=== PATIENT | male | born 1955 | race Caucasian/White ===

== ENCOUNTER 2017-08-02 15:11 | Inpatient (IN) ==
--- NOTE | 2017-08-02 15:58 | Emergency Department Note ---
Disposition Clinical Impression: Deep vein thrombosis of lower extremity, PAD (peripheral artery disease) Disposition: Admitted As Inpatient Condition: Fair Time of Disposition: 17:29 Extremity Problem HPI - General Chief complaint: ED Extremity Problem,Nontraumatic Stated complaint: DVT L leg Time Seen by Provider: 08/02/17 15:14 Source: patient, EMS Limitations: no limitations Nursing Notes Reviewed: Yes Vital Signs Reviewed: Yes - History of Present Illness HPI Narrative: 62-year-old male, transfer from [place], with a past medical history of DM (July 2017 Hgb A1c 9.9), hypertension, hypercholesterolemia, and 40 year smoking history, presenting with bilateral posterior calf tenderness on exertion x 6 months. 4 days ago progressed R LEG to leg pain on rest. Endorses associated symptoms of mild coolness to touch. Per OSH report, MELANIE was done on 07/30/17 with MELANIE of right side of 0.21 and MELANIE on left side 0.82. Per verbal report to ED, [facility] studies finding concerning for occlusion to flow in R popliteral artery and DVT in L popliteal vein. Pt Subjective Complaint: extremity pain Onset (ago): day(s) Consistency: constant Injury Location: right, lower extremity, other (Evidence) Pain Scale: 8 Quality: burning Radiation: distal Improves with: nothing Worsens with: walking Associated symptoms: Reports: abdominal pain, back pain, other (erectile dysfunction, R LE appears cold to touch. Denies buttock claudication. ). 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 No recent surgery. No active malignancy. Patient's last meal: Coffee in AM. ) - Related Data Home Medications Medication Instructions Recorded Confirmed Atorvastatin [Lipitor] 40 mg PO HS 08/02/17 08/02/17 Cilostazol [Pletal] 100 mg PO BID 08/02/17 08/02/17 Gabapentin [Neurontin] 300 mg PO BID 08/02/17 08/02/17 Glimepiride [Amaryl] 4 mg PO DAILY 08/02/17 08/02/17 Lisinopril-HCTZ 20-12.5 [Prinzide 1 tab PO DAILY 08/02/17 08/02/17 20-12.5] Metformin HCl [Metformin HCl ER] 2,000 mg PO DAILY 08/02/17 08/02/17 Metoprolol Tartrate [Metoprolol 50 mg PO BID 08/02/17 08/02/17 Tartrate] SitaGLIPtin [Januvia] 200 mg PO DAILY 08/02/17 08/02/17 Triamterene/HCTZ 37.5/25mg 1 tab PO DAILY 08/02/17 08/02/17 [Dyazide] Allergies Allergy/AdvReac Type Severity Reaction Status Date / Time Oxycodone [From Percocet] AdvReac Itching Verified 08/02/17 18:39 Constitutional: Denies: fever, chills Cardiovascular: Denies: chest pain, dyspnea on exertion Respiratory: Denies: cough, dyspnea, wheezes Neurological: Reports: numbness, paresthesias Past Medical History - Past Medical History Medical history: Reports: DVT, diabetes, hyperlipidemia, hypertension, peripheral artery disease Psychiatric history: Reports: no psych history - Social History Smoking Status: Current every day smoker Smokeless Tobacco Status: No Alcohol use: Reports: none Drug use: Reports: none Physical Exam - General Limitations: no limitations General appearance: alert - Head Head exam: atraumatic, normocephalic - Eye Eye exam: Present: normal appearance, EOMI. Absent: conjunctival injection - Chest Chest inspection: Present: symmetric chest wall rise. Absent: tenderness - Respiratory Respiratory exam: Present: normal lung sounds bilaterally. Absent: respiratory distress, accessory muscle use - Cardiovascular Cardiovascular exam: Present: regular rate, normal rhythm, +S1, +S2 - Abdominal Exam Abdominal exam: Present: soft. Absent: tenderness, distention, guarding, rebound - Extremities Exam Extremities exam: Present: other (Right pedal pulses absent. Bedside U/S visualized color flow of the R dorsalis pedis. L: Pedal pulse via Doppler. Doppler: Femoral pulses present b/l. Popliteal pulses b/l. Mild discoloration to base of R foot. No gangrene. No ulcer seen b/l. Tenderness to touch on R toe. ) - Neurological Exam Neurological exam: Present: oriented X3 - Psychiatric Psychiatric exam: Present: normal affect Course - Consultations Consultation #1: 16:30 - Consultation with Vascular Surgeon. Dr. Tobin to evaluate pt in ED. Consultation #2: Dr. Tobin at Bedside 16:45 - Had an extensive discussion with family. Accepts consultation. Pt and family thanked surgeon, all questions answered. Consultation #3: 17:25- Discussed case with Dr. Baez. Accepts admission. Vital Signs Temperature 97.9 F 08/02/17 15:16 Pulse Rate 61 08/02/17 15:16 Respiratory Rate 18 08/02/17 15:16 Blood Pressure 162/84 08/02/17 15:16 O2 Sat by Pulse Oximetry 97 08/02/17 15:16 Temperature 97.9 F 08/02/17 15:16 Pulse Rate 61 08/02/17 15:16 Respiratory Rate 18 08/02/17 15:16 Blood Pressure 162/84 08/02/17 15:16 O2 Sat by Pulse Oximetry 97 08/02/17 15:16 Oxygen Delivery Oxygen Delivery Room Air Extremity Problem, Nontraumati - MDM Narrative Medical decision making narrative: 62-year-old male with a past medical history of DM, hypertension, and 40-year old smoking history presenting with gradual worsening of lower extremity claudication on exertion, erectile dysfunction x months. No buttock claudication. Findings suggestive of severe arterial insufficiency on the right , and with mild arterial insufficiency on the left. DVT in LE. Femoral pulses and popliteal pulses present via Doppler. No gangrene. No ulcers. Vascular surgery consultation made. Dr. Tobin accepts patient, recommends admission. Treatment of DVT initiated in ED. Hospitalist accepts admission. - Differential Diagnosis Likely: deep venous thrombosis, arterial vascular disorder - Medical Records Medical records reviewed: Yes I reviewed the patient's medical records. Formal Report of [facility] studies not in transfer file. We have requested files from [place]. - Lab Data Lab results reviewed: Yes I reviewed the patient's lab results. Result diagrams: 08/02/17 15:40 08/02/17 15:40 Lab Results 08/02/17 08/02/17 08/02/17 Range/Units 15:40 15:40 15:40 WBC 7.4 (4.3-11.1) K/mcL RBC 4.79 (4.19-5.50) M/mcL Hgb 14.7 (12.9-16.9) g/dL Hct 43.1 (37.5-50.1) % MCV 90.0 (83.0-100.0) fL MCH 30.7 (28.0-33.3) pg MCHC 34.1 (31.6-35.5) g/dL RDW 12.8 (11.5-14.5) % Plt Count 161 (140-400) K/mcL MPV 11.0 (9.4-12.4) fL Immature Gran % 0.4 (0-4) % Seg Neutrophils % 54.0 % Lymphocytes % 32.4 % Monocytes % 8.9 % Eosinophils % 3.8 % Basophils % 0.5 % Neutrophils # 4.0 (1.6-8.9) K/mcL Lymphocytes # 2.4 (0.6-4.6) K/mcL Monocytes # 0.7 (0.0-1.3) K/mcL Eosinophils # 0.3 (0.0-0.6) K/mcL Basophils # 0.0 (0.0-0.2) K/mcL PT (9.4-12.1) Seconds INR APTT (26.0-36.0) Seconds Sodium 137 (136-145) mEq/L Potassium 3.7 (3.5-5.1) mEq/L Chloride 105 (98-107) mEq/L Carbon Dioxide 26 (23-29) mEq/L BUN 18 (8-23) mg/dL Creatinine 1.09 (0.70-1.30) mg/dL Est GFR ( Amer) > 60 (> 60) Est GFR (Non-Af Amer) > 60 (> 60) BUN/Creatinine Ratio 17 (6-26) Glucose 132 H (70-105) mg/dL Calculated Osmolality 288 (280-300) Calcium 9.6 (8.6-10.3) mg/dL Blood Type A POSITIVE Antibody Screen NEGATIVE 08/02/17 Range/Units 15:40 WBC (4.3-11.1) K/mcL RBC (4.19-5.50) M/mcL Hgb (12.9-16.9) g/dL Hct (37.5-50.1) % MCV (83.0-100.0) fL MCH (28.0-33.3) pg MCHC (31.6-35.5) g/dL RDW (11.5-14.5) % Plt Count (140-400) K/mcL MPV (9.4-12.4) fL Immature Gran % (0-4) % Seg Neutrophils % % Lymphocytes % % Monocytes % % Eosinophils % % Basophils % % Neutrophils # (1.6-8.9) K/mcL Lymphocytes # (0.6-4.6) K/mcL Monocytes # (0.0-1.3) K/mcL Eosinophils # (0.0-0.6) K/mcL Basophils # (0.0-0.2) K/mcL PT 10.5 (9.4-12.1) Seconds INR 1.0 APTT 28.6 (26.0-36.0) Seconds Sodium (136-145) mEq/L Potassium (3.5-5.1) mEq/L Chloride (98-107) mEq/L Carbon Dioxide (23-29) mEq/L BUN (8-23) mg/dL Creatinine (0.70-1.30) mg/dL Est GFR ( Amer) (> 60) Est GFR (Non-Af Amer) (> 60) BUN/Creatinine Ratio (6-26) Glucose (70-105) mg/dL Calculated Osmolality (280-300) Calcium (8.6-10.3) mg/dL Blood Type Antibody Screen - Radiology Data Radiology results reviewed: Yes I reviewed the patient's radiology results. - EKG Data EKG attestation: Yes I reviewed and interpreted this EKG. EKG results narrative: 16:59:29 - Sinus bradycardia. Ventricular rate 56. [place] interval 139. QRS duration 89. QT/Qtc 439/430 ms.
[2017-08-02 16:21] LABS: Basophils % 0.5 %; Eosinophils # 0.3 K/mcL (0.0-0.6); Eosinophils % 3.8 %; Hematocrit 43.1 % (37.5-50.1); Hemoglobin 14.7 g/dL (12.9-16.9); Immature Granulocytes % 0.4 % (0-4); Lymphocytes # 2.4 K/mcL (0.6-4.6); Lymphocytes % 32.4 %; Mean Corpuscular HGB Conc 34.1 g/dL (31.6-35.5); Mean Corpuscular Hemoglobin 30.7 pg (28.0-33.3); Monocytes # 0.7 K/mcL (0.0-1.3); Monocytes % 8.9 %; Platelet Count 161 K/mcL (140-400); Red Blood Count 4.79 M/mcL (4.19-5.50); Red Cell Distribution Width 12.8 % (11.5-14.5)
[2017-08-02 16:29] LABS: Prothrombin Time 10.5 Seconds (9.4-12.1)
[2017-08-02] MEDS ORDERED: *HR* Heparin 5,000 UNIT/ML VIAL IVP ONE (16:39)
[2017-08-02] MEDS ORDERED: *HR* Heparin 5,000 UNIT/ML VIAL IVP PRN ×2 (16:39)
[2017-08-02 16:43] LABS: BUN/Creatinine Ratio 17 (6-26); Blood Urea Nitrogen 18 mg/dL (8-23); Calcium 9.6 mg/dL (8.6-10.3); Carbon Dioxide 26 mEq/L (23-29); Chloride 105 mEq/L (98-107); Glucose 132 mg/dL (70-105); Osmolality,Calculated 288 (280-300); Potassium 3.7 mEq/L (3.5-5.1); Sodium 137 mEq/L (136-145); eGFR For African Americans > 60 (> 60); eGFR For Non-African Americans > 60 (> 60)
--- NOTE | 2017-08-02 16:49 | Emergency Department Note ---
START Narrative - START START: I examined this patient and my medical decision-making was reviewed with the Resident Physician. I agree with the documented findings, disposition and treatment plan as described except to the extent set forth below. 62 yo M sent from [place] for concerns for right popliteal Aa. occlusion. pt also found out to have a left DVT. this is all new for him. sx with pain started on and now has noted some color changes in right great toe. increasing pain in this area as well. [facility] and MELANIE spoke with Dr Tobin who came to ER right away to see pt. i have ordered heparin gtt in consult with pharmacy as well critical care time of 35 min spent in medical management of vascular occlusion.
[2017-08-02 16:50] LABS: Activated Partial Thrombo Time 28.6 Seconds (26.0-36.0)
[2017-08-02] MEDS: Heparin 25,000 UNIT/500 ML D5W 25,000 UNIT/500 ML BAG IVC SCH (17:26)
--- NOTE | 2017-08-02 17:30 | Vascular/Endovasc Consult Note ---
Date of Encounter: 08/02/17 Time of Encounter: 17:00 Assessment and Plan (1) Atherosclerosis of [place] arteries of extremities with rest pain, right leg Status: Chronic The pathophysiology and natural history of peripheral vascular disease was discussed with the patient and all questions were answered. He has a diminished pulse exam. His RABI is consistent with severe disease. His LABI is consistent with mild disease. He will be admitted and started on a heparin drip. He will be scheduled for an angiogram tomorrow. The risks, benefits and alternatives were discussed and all questions were answered. (2) Essential hypertension Status: Chronic He was counseled regarding atherosclerotic risk factor reduction. (3) Mixed hyperlipidemia Status: Chronic (4) Diabetes mellitus with peripheral angiopathy without gangrene Status: Chronic Qualifiers: Diabetes mellitus type: type 2 Diabetes mellitus care home insulin use: unspecified care home insulin use status Qualified Code(s): E11.51 - Type 2 diabetes mellitus with diabetic peripheral angiopathy without gangrene (5) Tobacco abuse Status: Chronic He was counseled regarding smoking cessation. Will order nicotine patch. (6) Deep vein thrombosis of lower extremity Status: Acute The patient has a left lower extremity DVT. He will be started on a heparid drip. Qualifiers: Affected thrombotic vein of extremity: popliteal Chronicity: acute Laterality: left Qualified Code(s): I82.432 - Acute embolism and thrombosis of left popliteal vein - History of Present Illness Consult date: 08/02/17 Requesting physician: Fredis Baldwin Consult reason: Peripheral vascular disease with rest pain Chief complaint: Right foot pain History of present illness: Mr. Cheung is a 62 year old male with a history of hypertension, hyperlipidemia, diabetes and tobacco abuse. The patient reports that he began to develop disabling right lower extremity claudication in December 2016. The patient reports that his symptoms progressed over the next several months. He was seen at the [facility], but intially was thought to have a nonvascular issue. He underwent vascular labs recently and was found to have evidence of significant peripheral vascular disease. The patient was transferred from the [facility] to [facility] ED for further evaluation. He denies rest pain, ulceration or gangrene. He denies chest pain or shortness of breath. He denies hear palpitations. Past Med Surg Social Fam HX - Past Medical History Medical history: DVT, diabetes, hyperlipidemia, hypertension, peripheral artery disease Psychiatric history: no psych history - Social History Smoking Status: Current every day smoker Smokeless Tobacco Status: No Alcohol use: none Drug use: none - Family History Mother Hx Family Endocrine Disorder: Yes Father Hx Family Endocrine Disorder: Yes Medications and Allergies Atorvastatin [Lipitor] 40 mg PO HS 08/02/17 [History] Cilostazol [Pletal] 100 mg PO BID 08/02/17 [History] Gabapentin [Neurontin] 300 mg PO BID 08/02/17 [History] Glimepiride [Amaryl] 4 mg PO DAILY 08/02/17 [History] Lisinopril-HCTZ 20-12.5 [Prinzide 20-12.5] 1 tab PO DAILY 08/02/17 [History] Metformin HCl [Metformin HCl ER] 2,000 mg PO DAILY 08/02/17 [History] Metoprolol Tartrate 50 mg PO BID 08/02/17 [History] SitaGLIPtin [Januvia] 200 mg PO DAILY 08/02/17 [History] Triamterene/HCTZ 37.5/25mg [Dyazide] 1 tab PO DAILY 08/02/17 [History] HYDROcodone/Acet 5/325 mg [[place] 5-325 mg] 2 tab PO Q6HR PRN 10 Days #30 tablet 08/05/17 [Rx] Rivaroxaban [Xarelto] 15 mg PO BID #41 tablet 08/05/17 [Rx] Rivaroxaban [Xarelto] 20 mg PO 1700 #30 tablet 08/05/17 [Rx] 3 Allergy/AdvReac Type Severity Reaction Status Date / Time Oxycodone [From Percocet] AdvReac Itching Verified 08/02/17 18:39 All Systems Review: The remainder of the systems were reviewed and are negative Exam Vital Signs, Last 4 Hours Temp Pulse Resp BP Pulse Ox 08/02/17 15:16 97.9 F 61 18 162/84 97 General: Present: Conversant, No Apparent Distress HEENT: Present: Trachea midline, Pupils equal Neck: Absent: JVD, Left Carotid bruit, Right Carotid bruit Cardiac: Present: Reg Rate and Rhythm, Normal S1 and S2 Lungs: Present: Normal Breath Sounds Neuro: Present: Alert and responsive, Motor nerves grossly intact, Sensory nerves grossly intact Abdomen: Present: Soft, Non-tender. Absent: Masses Vascular: Present: Normal capillary refill (except sluggish at right great toe) , Pulse, absent (right pedal pulses absent, right popliteal pulse absent), Pulse , diminished (Left lower extremity). Absent: Edema Skin: Present: No rashes noted on visualized skin. Absent: Wound/ulcer(s) Musculoskeletal: Present: No Chest Wall Tenderness Consult Discharge Plan - Plan Instructions: Deep Venous Thrombosis (DC), Peripheral Vascular Disorders (DC), Angiography (DC) Additional Instructions: May remove bandages and shower on 08/06/17. Wash wounds gently and pat to dry. Apply dry gauze to wounds daily for 7 days. No tub baths or swimming until 08/23/17. Call Dr. Tobin at [phone] with questions or concerns. Referrals: Gus Tobin MD [Partnered Physician] - 08/10/17 2:10 pm [place],PCP [Primary Care Provider] - 08/13/17 9:30 am Prescriptions: HYDROcodone/Acet 5/325 mg [[place] 5-325 mg] 2 tab PO Q6HR PRN 10 Days #30 tablet PRN Reason: Severe Pain Rivaroxaban [Xarelto] 15 mg PO BID #41 tablet Rivaroxaban [Xarelto] 20 mg PO 1700 #30 tablet
[2017-08-02] MEDS ORDERED: *HR* Nalbuphine 10 MG/ML AMPUL IVP ONE (17:44)
--- NOTE | 2017-08-02 19:53 | Internal Med History&Physical ---
<Hero Hope - Last Filed: 08/02/17 20:26> Date of Encounter: 08/02/17 Time of Encounter: 19:53 Assessment and Plan (1) Severe peripheral arterial disease Current visit: Yes Status: Acute Patient with history of progressive claudication over several months. Studies obtained at the [facility] today with reports of popliteal artery occlusion in the right leg and DVT in the left popliteal vein. Vascular surgery consulted by emergency department, evaluated in the emergency department. Continue heparin gtt. NPO at midnight. Plan for angiogram tomorrow as per vascular surgery note. (2) Deep vein thrombosis of lower extremity Current visit: Yes Status: Acute Reported DVT in left popliteal vein. History of severe peripheral vascular disease. Vascular surgery consulted. Continue heparin gtt Qualifiers: Affected thrombotic vein of extremity: popliteal Chronicity: acute Laterality: left Qualified Code(s): I82.432 - Acute embolism and thrombosis of left popliteal vein (3) Hyperlipidemia Current visit: Yes Status: Chronic Patient is NPO Resume statin after vascular intervention. Qualifiers: Hyperlipidemia type: unspecified Qualified Code(s): E78.5 - Hyperlipidemia , unspecified (4) Essential hypertension Current visit: Yes Status: Chronic NPO Hold antihypertensives medications. Lopressor 5 mg every 6 hours as needed. (5) Diabetes mellitus with peripheral angiopathy without gangrene Current visit: Yes Status: Chronic NPO at midnight. Hold metformin. Sliding-scale insulin coverage. Qualifiers: Diabetes mellitus type: type 2 Diabetes mellitus [facility] insulin use: unspecified terminal gauger insulin use status Qualified Code(s): E11.51 - Type 2 diabetes mellitus with diabetic peripheral angiopathy without gangrene Internal Medicine - H&P: HPI Chief complaint: dvt, pvd Admitted From: Emergency Dept Plans for Post Hospital Care: Home History of present illness: Mr. Cheung is a 62 year old male with a past medical history of type 2 diabetes, hypertension, peripheral vascular disease, hyperlipidemia who presented to the emergency department on 08/02/17 from the [facility] urgent care due to concern for lower extremity peripheral vascular disease. The patient reports that he has had issues with claudication since 2017. It seems to been progressing over time. Reports pain in his lower extremities worse with ambulation. He reports for the last several days he has had pain in his right calf. States it is also having some numbness in his feet. He went to the [facility] urgent care with her was concerned that he had a DVT as well as absent pulses in his right lower extremity. Patient sent here for evaluation. Upon arrival the patient was evaluated in the emergency department and vascular surgery consultation was obtained. Past surgery evaluated the patient in the emergency department making recommendations for heparin drip as well as angiogram in the morning. Patient seen and evaluated at bedside in the emergency department. He voices no complaints. States that he has been having pain in his Right calf for several days. Denies any difference in discoloration than usual. He denies any chest pain, shortness of breath, nausea, vomiting, abdominal pain. He denies any prior history of DVT or pulmonary embolism. No known history of coagulopathy as he is aware. No other complaints. Past Med Surg Social Fam HX - Past Medical History Attestation: Yes The following information was validated with the patient. Source: patient Medical history: DVT, diabetes, hyperlipidemia, hypertension, peripheral artery disease Psychiatric history: no psych history - Past Surgical History Surgical History: non-contributory - Social History Smoking Status: Current every day smoker Smokeless Tobacco Status: No Alcohol use: none Drug use: none - Family History Mother Hx Family Endocrine Disorder: Yes Father Hx Family Endocrine Disorder: Yes Internal Medicine - H&P: Meds Atorvastatin [Lipitor] 40 mg PO HS 08/02/17 [History] Cilostazol [Pletal] 100 mg PO BID 08/02/17 [History] Gabapentin [Neurontin] 300 mg PO BID 08/02/17 [History] Glimepiride [Amaryl] 4 mg PO DAILY 08/02/17 [History] Lisinopril-HCTZ 20-12.5 [Prinzide 20-12.5] 1 tab PO DAILY 08/02/17 [History] Metformin HCl [Metformin HCl ER] 2,000 mg PO DAILY 08/02/17 [History] Metoprolol Tartrate [Metoprolol Tartrate] 50 mg PO BID 08/02/17 [History] SitaGLIPtin [Januvia] 200 mg PO DAILY 08/02/17 [History] Triamterene/HCTZ 37.5/25mg [Dyazide] 1 tab PO DAILY 08/02/17 [History] 3 Allergy/AdvReac Type Severity Reaction Status Date / Time Oxycodone [From Percocet] AdvReac Itching Verified 08/02/17 18:39 All Systems PM: A 10-system review of systems was performed and is negative for pertinent findings except as documented above in the HPI. - Constitutional Constitutional: as per HPI - EENT Eyes: as per HPI Ears: as per HPI Nose, mouth and throat: as per HPI - Breasts Breasts: as per HPI - Cardiovascular Cardiovascular ROS IM: as per HPI - Respiratory Respiratory: as per HPI - Gastrointestinal Gastrointestinal: as per HPI - Genitourinary Genitourinary ROS male: as per HPI - Musculoskeletal Musculoskeletal ROS IM: as per HPI - Integumentary Integumentary IM: as per HPI - Neurological Neurological ROS: as per HPI - Psychiatric Psychiatric: as per HPI - Endocrine Endocrine IM: as per HPI - Hematologic/Lymphatic Hematologic/Lymphatic: as per HPI - Allergic/Immunologic Allergic/Immunologic: as per HPI - Constitutional Vitals: Temp Pulse Resp BP Pulse Ox 98 F 61 18 121/76 97 08/02/17 19:38 08/02/17 15:16 08/02/17 19:38 08/02/17 19:38 08/02/17 15:16 General appearance: Present: pleasant, no acute distress, answers questions appropriately - Head Head exam: Present: atraumatic, normal inspection, normocephalic - Eye Eye exam: Present: normal appearance - Neck Neck exam general surgery: Present: normal inspection - Respiratory Respiratory exam: Present: CTAB - Cardiovascular Cardiovascular exam: Present: RRR, +S1, +S2 - GI/Abdominal GI/Abdominal exam: Present: soft. Absent: distended, guarding, tenderness - Extremities Exam Additional comments: The patient has tenderness to palpation to the right calf. The patient also exhibits discoloration of the right great toe. Palpable pulses unobtainable in the dorsalis pedis and posterior tibial on the right. Capillary refill is preserved with the exception of the right great toe with response of roughly 4 seconds. One plus dorsalis pedis and posterior tibial pulses in the left lower extremity. No overlying skin changes or ulcerations. - Neurological Exam Neurological exam: Present: alert, no focal deficits - Skin Skin exam: Present: dry, intact Internal Med - H&P Results - Labs CBC & Chem 7: 08/02/17 15:40 08/02/17 15:40 <Marissa Mcclain - Last Filed: 08/02/17 22:17> Date of Encounter: 08/02/17 Internal Medicine - H&P: HPI History of present illness: Mr. Cheung is a 62 year old male All Systems PM: A 10-system review of systems was performed and is negative for pertinent findings except as documented above in the HPI. - Constitutional Vitals: Temp Pulse Resp BP Pulse Ox 98.0 F 69 18 141/83 97 08/02/17 19:53 08/02/17 20:15 08/02/17 19:53 08/02/17 19:53 08/02/17 19:53 Internal Med - H&P Results - Labs CBC & Chem 7: 08/02/17 15:40 08/02/17 15:40 - Attending Attestation I have seen and examined this patient independently. I have discussed with resident physician Dr Hope regarding the management plan. Agree with the documentation.
[2017-08-02] MEDS ORDERED: Naloxone 0.4 MG/ML INJ IVP PRN (19:57)
[2017-08-02] MEDS ORDERED: Ondansetron 4 MG/2 ML VIAL IVP PRN (19:57)
[2017-08-02] MEDS ORDERED: *HR* HYDROcodone/Acet 5/325 mg TABLET PO PRN (19:57)
[2017-08-02] MEDS ORDERED: Dextrose Gel 15 GM/37.5 ML TUBE PO PRN ×2 (20:01)
[2017-08-02] MEDS ORDERED: *HR* Dextrose 50 % in Water (Syg) 50 ML SYRINGE IVP PRN (20:01)
[2017-08-02] MEDS ORDERED: D5% in Water 1,000 ML IVC PRN (20:01)
[2017-08-02] MEDS ORDERED: *HR* Metoprolol 5 MG/5 ML VIAL IVP PRN (20:14)
[2017-08-03] MEDS ORDERED: 0.9 % Sodium Chloride 1,000 ML IVC SCH (00:01)
[2017-08-03] MEDS: Insulin LISPRO 300 UNITS/3 ML VIAL SQ SCH ×4 (00:39→17:54)
[2017-08-03 00:46] LABS: Activated Partial Thrombo Time 153.5 Seconds (26.0-36.0)
[2017-08-03 00:58] LABS: Heparin anti-factor XA UFH 0.79 IU/mL (0.30-0.70)
[2017-08-03 04:13] LABS: Basophils % 0.5 %; Eosinophils # 0.2 K/mcL (0.0-0.6); Hematocrit 37.1 % (37.5-50.1); Immature Granulocytes % 0.2 % (0-4); Lymphocytes # 2.3 K/mcL (0.6-4.6); Mean Corpuscular HGB Conc 33.7 g/dL (31.6-35.5); Mean Corpuscular Hemoglobin 29.9 pg (28.0-33.3); Mean Corpuscular Volume 88.8 fL (83.0-100.0); Monocytes # 0.5 K/mcL (0.0-1.3); Monocytes % 8.3 %; Neutrophils # 3.3 K/mcL (1.6-8.9); Platelet Count 147 K/mcL (140-400); Red Blood Count 4.18 M/mcL (4.19-5.50); Red Cell Distribution Width 12.6 % (11.5-14.5)
[2017-08-03 04:16] LABS: Hemoglobin 12.5 g/dL (12.9-16.9)
[2017-08-03 04:22] LABS: INR 1.1; Prothrombin Time 11.5 Seconds (9.4-12.1)
[2017-08-03 04:38] LABS: BUN/Creatinine Ratio 20 (6-26); Blood Urea Nitrogen 22 mg/dL (8-23); Calcium 9.1 mg/dL (8.6-10.3); Carbon Dioxide 28 mEq/L (23-29); Chloride 104 mEq/L (98-107); Glucose 198 mg/dL (70-105); Osmolality,Calculated 295 (280-300); Potassium 3.6 mEq/L (3.5-5.1); Sodium 138 mEq/L (136-145); eGFR For African Americans > 60 (> 60); eGFR For Non-African Americans > 60 (> 60)
[2017-08-03] MEDS ORDERED: Heparin 1,000 UNITS/500 mL 500 ML ONE (07:12)
[2017-08-03] MEDS ORDERED: *HR* Heparin 10,000 UNIT/10 ML VIAL ONE (07:12)
[2017-08-03] MEDS ORDERED: 0.9 % Sodium Chloride 1,000 ML ONE (07:12)
[2017-08-03] MEDS ORDERED: ISOVUE-250 150 ML INFUS..BTL IV ONE (07:12)
--- NOTE | 2017-08-03 08:17 | Pre-Sedation Evaluation ---
Pre-sedation evaluation - Pre-sedation checklist Date of procedure: 08/03/17 Procedure: angiogram Recent Vitals: Last Vital Signs Temp 98.4 F 08/03/17 06:42 Pulse 89 08/03/17 07:39 Resp 18 08/03/17 07:37 BP 140/87 08/03/17 06:42 Pulse Ox 99 08/03/17 07:37 H&P (including ROS) documented in medical record: Yes Dietary Status: NPO after Midnight ASA Classification *see protocol: CLASS II-Mild systemic disease Plan of Care: Pt appropriate candidate for procedure/moderate/conscious sedation , Risks/benefits of procedure/sedation discussed w/ patient/family
[2017-08-03] MEDS ORDERED: *HR* Midazolam HCl 2 MG/2 ML VIAL ONE (08:18)
[2017-08-03] MEDS ORDERED: *HR* FentaNYL (PF) 100 MCG/2 ML VIAL ONE (08:37)
--- NOTE | 2017-08-03 09:33 | Invasive Diagnostic Lab Proc ---
Name: Ramirez Cheung Date of Study: 08/03/2017 Date: 1955 Ht: 168.0 in Medical Record#: [id number] Age: 62 Wt: 79 lb Gender: Male BSA: 1.89 Order #: [id number] BMI: 27.99 Physicians Performing MD: Gus Tobin MD Referring MD: Referring MD: Staff Name Position Time In Ada Andrea RN Monitor Ada Andrea RN Senior Talent Management Consultant Sites, Agata RT (R) Scrub Indications Claudication Procedures Performed AORTOGRAPHY, ABDOMINAL S&I AORTOGRAPHY EXT Bilat S&I Pre-Procedure Checklist Informed consent is complete signed and on chart. H&P is on chart. ID band is on and ID verified with patient. Patient NPO for procedure The procedure was described for the patient and questions were answered. Blood Pressure: 181/109 ECG is on chart. Rhythm: NSR Plan of Care Patient will tolerate the procedure without complications. Adequate level of comfort will be maintained. Hemodynamics will remain stable Patient will recover from procedure without complications. Respiratory function will be maintained. Cardiac rhythm will remain stable. Patient temperature will be maintained. Patient and/or family have verbalized understanding of the procedure. Patient Education Chief Complaint/Reason for Test: Peripheral angiogram Developmental Category: Adult (18-64 years) Learning Barriers: None Education Needs: Procedure Education Method: Verbal Information Taught: Peripheral angiogram Educational Evaluation: Able to repeat information Intravenous Access Time IV Size Location DC'd Fluid/Drip Rate Units RN 20g 1 1/4" Patent On Arrival 0.9NaCl Allergies acetaminophen PERCOCET Acetaminophen/Oxycodone Hydr Oxycodone Vital Signs Time BP Systolic BP Diastolic HR O2 Sats ASA 181 109 90 100 Procedure Medications Time Medication Dose Units Method Route 08:26 AM Oxygen 2 L/min nasal cannula 08:27 AM Versed 1 mg Intravenous 08:34 AM Versed 1 mg Intravenous 08:38 AM Fentanyl 50 mcg Intravenous 08:39 AM Lidocaine 2% 8 ml Subcutaneous 08:40 AM Lidocaine 2% 10 ml Subcutaneous ASA Classification: CLASS II- Mild systemic disease (i.e. well-controlled diabetes, hypertension, asthma, cigarette smoking) Nimo Score Preprocedure Postprocedure Activity 2- Moves 4 extremities sustained head lift Activity 2- Moves 4 extremities sustained head lift Circulation 2- SBP +/= 20 points of pre-anesthetic level Circulation 2- SBP +/= 20 points of pre-anesthetic level Consciousness 2- Awake and alert oriented x 3 Consciousness 2- Awake and alert oriented x 3 O2 Saturation 2- Able to maintain O2 satruation of 92% on room air O2 Saturation 2- Able to maintain O2 satruation of 92% on room air Respiratory 2- Able to deep breathe and cough well Respiratory 2- Able to deep breathe and cough well Total Score 10 Total Score 10 Contrast: Isovue 250- 150ml Contrast Amount: 87 ml Fluoro Dose: 209 mGy Activated Clotting Time Time Drawn ACT (sec) 09:03 AM 150 Procedure Log Time Note Entered By 08:24 AM Pt arrived to lab analyst 1 at 08:24 [email or web address] 08:25 AM Julia Hirsch RT (R) Position: Monitor Time in: 08:24 [email or web address] 08:25 AM Ada Andrea RN Position: Senior Talent Management Consultant Time in: 08:25 [email or web address] 08:25 AM Agata Mckinley RT (R) Position: Scrub Time in: 08:25 [email or web address] 08:25 AM Case delayed: No [email or web address] 08:25 AM Hair removed from procedure site in holding area using clippers. Bilateral groin prepped with Chloraprep by Julia Hirsch RT (R), then patient was draped. Skin intact. [email or web address] 08:26 AM Physician arrived 08:26 [email or web address] 08:26 AM ASA Class CLASS II- Mild systemic disease (i.e. well-controlled diabetes, hypertension, asthma, cigarette smoking) [email or web address] 08:26 AM Star and demetria completed [email or web address] 08:26 AM Sign in performed according to hospital policy. [email or web address] 08:26 AM Procedure start 08:26 [email or web address] 08:26 AM 08:26 Oxygen at 2 L/min per nasal cannula by Ada Andrea RN [email or web address] 08:27 AM 08:27 Versed 1 mg Intravenous Given by Ada Andrea RN [email or web address] 08:34 AM 08:34 Versed 1 mg Intravenous Given by Ada Andrea RN [email or web address] 08:35 AM Time out perfomed [email or web address] 08:35 AM Patient charges- Angio tray pack, Pulse Oximetry and ACIST tubing and transducer [email or web address] 08:35 AM Ultrasound, Sonosite, utilized to obtain vascular access [email or web address] 08:38 AM 08:38 Fentanyl 50 mcg Intravenous Given by Ada Andrea RN [email or web address] 08:39 AM Access obtained in the left femoral artery by percutaneous puncture. 4 Fr. 10 cm Terumo Horton sheath placed in left femoral artery [email or web address] 08:39 AM 0.035 180cm Bentson wire utilized to assist with catheter placement [email or web address] 08:39 AM 4Fr Omniflush catheter inserted over the wire [email or web address] 08:36 AM 08:36 8 ml Lidocaine 2% to left groin Subcutaneous Given By Gus Tobin MD [email or web address] 08:40 AM 08:40 10 ml Lidocaine 2% to left groin Subcutaneous Given By Gus Tobin MD [email or web address] 08:41 AM Abdominal aorta angiography performed in AP contrast injected 10/20 mls. [email or web address] 08:42 AM Catheter repositioned for runoff. [email or web address] 08:43 AM Setting up for stepping [email or web address] 08:43 AM Abdominal angiogram with runoff completed: 8 ml/sec for a total of 60 mls [email or web address] 08:51 AM Physician reviewing films. [email or web address] 08:52 AM Catheter repositioned up and over to Rt leg. [email or web address] 08:53 AM Rt lower leg. angiography performed in AP contrast injected 4/10 mls. [email or web address] 08:53 AM RT lower leg angiogram 4/10 [email or web address] 08:56 AM Physician reviewing films. [email or web address] 08:59 AM Catheter removed [email or web address] 08:59 AM Wire removed [email or web address] 08:59 AM Procedure completed at 08:59 [email or web address] 09:00 AM Sign Out completed: Radiation Dose 208.71 mGy Fluoro Time: 3.3 minutes. Isovue 250- 150ml contrast 87 ml given by Gus Tobin MD. Complications: None. Confirmed administered medications:Yes [email or web address] 09:00 AM Isovue 250- 150ml,1 bottle(s) used. [email or web address] 09:00 AM Estimated Blood Loss: minimal [email or web address] 09:00 AM Post Blood Pressure: 141/88 [email or web address] 09:00 AM Post EKG: NSR [email or web address] 09:01 AM Information taught: Peripheral angiogram [email or web address] 09:01 AM Education needs: Procedure, Plan of Care, and Disease Process [email or web address] 09:01 AM Learning barriers: None [email or web address] 09:01 AM Education methods: Verbal [email or web address] 09:01 AM Education evaluation: Able to repeat information [email or web address] 09:01 AM Patient pain level 0/10 [email or web address] 09:01 AM Delay to floor: No [email or web address] 09:02 AM Pt taken to Room# 10 [email or web address] 09:02 AM Family placed in not available Dr. Tobin will call .. [email or web address] 09:02 AM Complications: None [email or web address] 09:02 AM Fluoro Time: 3.3 minutes [email or web address] 09:02 AM Isovue 250- 150ml contrast 87 ml given by Gus Tobin MD [email or web address] 09:02 AM Radiation Dose 208.71 mGy [email or web address] 09:05 AM Arterial sheath pulled using manual compression and V+Pad for 15 minutes by Ada Andrea RN [email or web address] 09:16 AM Report given to Nikolai BLACK. Pt taken to , Room # 10 09:16 [email or web address] 09:21 AM Site status No bleeding/hematoma - Lt Groin as reported by Ada Andrea RN at 09:21 [email or web address] 09:21 AM Opsite applied [email or web address] 09:23 AM Patient out of room 09:23 [email or web address] Post Procedure Information Blood Pressure: 141/88 mmHg Rhythm: NSR Site Checks Time Location Status Staff Sheath In? Note 9:21:00 AM Lt Groin No bleeding/hematoma Ada Andrea RN Pulses Time Site Pre Procedure Post Procedure Note Bilateral radial 2+ 2+ Rt DP/PT None None Lt DP/PT 1+ 1+ Updated by Julia Hirsch, RT(R) on 08/03/2017 9:24:27 AM electronically signed on 08/03/2017 9:25:26 AM with status of Final
--- NOTE | 2017-08-03 09:51 | Procedure Note ---
Date of procedure: 08/03/17 Pre-op diagnosis: Peripheral vascular disease with rest pain Post-op diagnosis: same Procedure: Angiogram with selective imaging via left common femoral artery with 4 faroese sheath. Direct pressure held for hemostasis. Anesthesia: local, IV sedation (moderate conscious sedation) Surgeon: Gus Tobin Was there an certified surgical first assistant present: No Estimated blood loss (cc): 1 Specimen: none Pathology: none sent Condition: stable (no complications) Disposition: floor
[2017-08-03] MEDS ORDERED: Regadenoson 0.4 MG/5 ML SYRINGE IVP ONE (10:41)
[2017-08-03] MEDS: Aspirin 81 MG TAB.CHEW PO SCH (13:08)
--- NOTE | 2017-08-03 17:16 | Internal Med Progress Note ---
Date of Encounter: 08/03/17 Time of Encounter: 13:00 - Assessment and plan (1) Severe peripheral arterial disease Current Visit: Yes Status: Acute Assessment and plan: Patient with history of progressive claudication over several months. Studies obtained at the [facility] today with reports of popliteal artery occlusion in the right leg and DVT in the left popliteal vein. Vascular surgery consulted by emergency department, evaluated in the emergency department. Continue heparin drip. Angiogram and stress test completed today. Plan for surgery on (2) Deep vein thrombosis of lower extremity Current Visit: Yes Status: Acute Assessment and plan: continue on heparin. Plan to transition to po anticoagulation once clear from vascular surgery Qualifiers: Affected thrombotic vein of extremity: popliteal Chronicity: acute Laterality: left Qualified Code(s): I82.432 - Acute embolism and thrombosis of left popliteal vein (3) Hyperlipidemia Current Visit: Yes Status: Chronic Assessment and plan: Resume statin once clear from vascular surgery Qualifiers: Hyperlipidemia type: unspecified Qualified Code(s): E78.5 - Hyperlipidemia , unspecified (4) Diabetes mellitus with peripheral angiopathy without gangrene Current Visit: Yes Status: Chronic Assessment and plan: Continue insulin. Monitor fingersticks Qualifiers: Diabetes mellitus type: type 2 Diabetes mellitus intermodal dispatcher insulin use: unspecified mcfp insulin use status Qualified Code(s): E11.51 - Type 2 diabetes mellitus with diabetic peripheral angiopathy without gangrene - Time Spent With Patient Total time spent is greater than 50% in coordination of care (as documented) at patient's floor/unit and/or counseling patient: - Subjective Interval history: No acute events overnight. Went for angiogram and stress test this am - Constitutional Vitals: Temp Pulse Resp BP Pulse Ox 98.4 F 89 20 190/88 97 08/03/17 12:57 08/03/17 16:04 08/03/17 16:04 08/03/17 15:38 08/03/17 16:04 General appearance: Present: pleasant, no acute distress, answers questions appropriately - Head Head exam: Present: atraumatic - Respiratory Respiratory exam: Present: CTAB - GI/Abdominal GI/Abdominal exam: Present: normal bowel sounds, soft - Neurological Exam Neurological exam: Present: alert, oriented X3 Internal Medicine: Result - Labs CBC & Chem 7: 08/03/17 03:34 08/03/17 03:34 Labs: Short CBC 08/03/17 Range/Units 03:34 WBC 6.4 (4.3-11.1) K/mcL Hgb 12.5 L D (12.9-16.9) g/dL Hct 37.1 L (37.5-50.1) % Plt Count 147 (140-400) K/mcL Neutrophils # 3.3 (1.6-8.9) K/mcL BMP 08/03/17 03:34 Sodium 138 Potassium 3.6 Chloride 104 Carbon Dioxide 28 BUN 22 Creatinine 1.08 Glucose 198 H Calcium 9.1 - ABG Interpretation ABG results: PT/INR, D-dimer PT 11.5 Seconds (9.4-12.1) 08/03/17 03:34 Consult Discharge Plan - Plan Referrals: [facility] [Primary Care Provider] - 08/13/17 9:30 am
[2017-08-03] MEDS: Lisinopril-HCTZ 20-12.5mg TABLET PO SCH (20:21)
[2017-08-04] MEDS: Heparin 25,000 UNIT/500 ML D5W 25,000 UNIT/500 ML BAG IVC SCH (00:28)
[2017-08-04 04:02] LABS: Basophils % 0.5 %; Eosinophils # 0.2 K/mcL (0.0-0.6); Eosinophils % 3.6 %; Hematocrit 39.6 % (37.5-50.1); Hemoglobin 13.7 g/dL (12.9-16.9); Immature Granulocytes % 0.2 % (0-4); Lymphocytes # 2.2 K/mcL (0.6-4.6); Lymphocytes % 36.2 %; Mean Corpuscular HGB Conc 34.6 g/dL (31.6-35.5); Mean Corpuscular Hemoglobin 30.9 pg (28.0-33.3); Mean Corpuscular Volume 89.4 fL (83.0-100.0); Mean Platelet Volume 11.3 fL (9.4-12.4); Monocytes # 0.5 K/mcL (0.0-1.3); Monocytes % 7.8 %; Neutrophils # 3.2 K/mcL (1.6-8.9); Platelet Count 158 K/mcL (140-400); Red Blood Count 4.43 M/mcL (4.19-5.50); Red Cell Distribution Width 12.5 % (11.5-14.5); Segmented Neutrophils % 51.7 %
[2017-08-04 04:03] LABS: BUN/Creatinine Ratio 20 (6-26); Blood Urea Nitrogen 18 mg/dL (8-23); Calcium 9.5 mg/dL (8.6-10.3); Carbon Dioxide 26 mEq/L (23-29); Chloride 105 mEq/L (98-107); Glucose 254 mg/dL (70-105); Osmolality,Calculated 297 (280-300); Sodium 138 mEq/L (136-145); eGFR For African Americans > 60 (> 60); eGFR For Non-African Americans > 60 (> 60)
[2017-08-04] MEDS: Insulin LISPRO 300 UNITS/3 ML VIAL SQ SCH ×2 (08:06→17:55)
[2017-08-04] MEDS: Lisinopril-HCTZ 20-12.5mg TABLET PO SCH (08:07)
[2017-08-04] MEDS: Aspirin 81 MG TAB.CHEW PO SCH (08:07)
--- NOTE | 2017-08-04 09:48 | Anesthesia Evaluation PreOp ---
Date of Encounter: 08/04/17 Time of Encounter: 09:44 - Past History Planned Operation: R Fem-Pop Bypass Cardiac History: HTN (maintained on Metoprolol, Lisinopril-Hctz, Triamterene- hctz), Hyperlipidemia, Other (Severe PVDz w/Disabling RLE claudication since 2016 maintained on Pletal) Pulmonary History: Smoker (1ppd x 40yrs. 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 this hospitalization), Diabetes Type II (maintained on Glimepiride, Metformi, Januvia) Anesthesia History: No Prior Anesthetic Complications, Past Anesthesia (R- shoulder RCR, Back surrgery, Knee, ashleigh), Problems (COMBATIVE upon wake-up) Alcohol Use: none Drug use: none Medications and Allergies Atorvastatin [Lipitor] 40 mg PO HS 08/02/17 [History] Cilostazol [Pletal] 100 mg PO BID 08/02/17 [History] Gabapentin [Neurontin] 300 mg PO BID 08/02/17 [History] Glimepiride [Amaryl] 4 mg PO DAILY 08/02/17 [History] Lisinopril-HCTZ 20-12.5 [Prinzide 20-12.5] 1 tab PO DAILY 08/02/17 [History] Metformin HCl [Metformin HCl ER] 2,000 mg PO DAILY 08/02/17 [History] Metoprolol Tartrate [Metoprolol Tartrate] 50 mg PO BID 08/02/17 [History] SitaGLIPtin [Januvia] 200 mg PO DAILY 08/02/17 [History] Triamterene/HCTZ 37.5/25mg [Dyazide] 1 tab PO DAILY 08/02/17 [History] 3 Allergy/AdvReac Type Severity Reaction Status Date / Time Oxycodone [From Percocet] AdvReac Itching Verified 08/02/17 18:39 - Meds/Allergy Pre-op Review Medications Reviewed: Yes Allergies Reviewed: Yes Beta Blockers on Current Med List: Yes (Metoprolol) If Beta Blockers taken, Date/Time (Last Dose taken): 08/04/2017 @ 0805 Anesthesia Results - Labs 08/04/17 03:18 08/04/17 03:18 Laboratory Results Laboratory Tests 08/02/17 08/03/17 08/04/17 23:50 03:34 03:18 PT 11.5 INR 1.1 APTT Heparin Anti-Xa, Unfract 0.79 H Est GFR (Non-Af Amer) > 60 Glucose 254 H 08/04/17 08:20 PT INR APTT 65.8 H Heparin Anti-Xa, Unfract Est GFR (Non-Af Amer) Glucose - Imaging Additional studies: Nuclear Stress 08/03/2017 - Impression: Pharmacologic stress ECG is non-diagnostic for ischemia due to baseline non-specific ST and T changes. Gated EF = 62%. Perfusion imaging was negative for ischemia or infarct. Anesthesia Exam Vital Signs Temp Pulse Resp BP Pulse Ox 08/04/17 08:05 98.4 F 63 18 145/82 98 08/04/17 07:41 98.4 F 63 18 145/82 98 08/04/17 04:24 97.9 F 68 14 125/79 97 08/04/17 00:09 98.1 F 73 14 123/64 96 08/03/17 19:40 98.7 F 87 16 142/84 98 08/03/17 17:17 98 F 80 14 150/89 98 08/03/17 16:04 89 20 97 08/03/17 15:41 91 08/03/17 15:40 79 20 97 08/03/17 15:38 92 20 190/88 96 08/03/17 14:04 89 20 166/98 96 08/03/17 12:57 98.4 F 84 18 155/99 100 08/03/17 11:08 78 08/03/17 11:05 81 18 147/91 100 08/03/17 10:35 82 18 157/95 100 08/03/17 10:20 77 16 151/79 99 08/03/17 10:05 84 16 146/95 97 08/03/17 09:57 98.1 F 87 18 136/89 97 08/03/17 09:50 89 16 144/90 96 Intake and Output 08/03/17 08/04/17 08/04/17 23:59 07:59 15:59 Intake Total 1240 / 1240 229 / 229 0 / 0 Output Total 0 / 0 0 / 0 Balance 1240 / 1240 229 / 229 0 / 0 Intake: IV Fluids 1000 / 1000 229 / 229 0.9 % Sodium Chloride 1,000 ML 1000 / 1000 @ 50 mls/hr IVC .Q20H ZULLY Rx#: [id number] Heparin 25,000 UNIT/500 ML D5W 0 / 0 229 / 229 25,000 unit In 500 ml @ 14 UNIT /KG/HR 22.226 mls/hr IVC . [id number] ZULLY Rx#:[id number] Oral 240 / 240 0 / 0 Output: Urine 0 / 0 0 / 0 Other: Weight 74.1 kg Blood Glucose* 147 223 223 Patient Weight 08/04/17 23:59 Weight 74.1 kg - HEENT Pupil (Motor): Pupils equal, EOMI Mallampati: II Teeth: Missing, Edentulous (upper) Oral Opening: Greater than 3 - TELECOMMUNICATIONS OPERATOR LOC: Oriented TELECOMMUNICATIONS OPERATOR Motor: Normal RUE, Normal LUE, Normal RLE, Normal LLE, Normal Face TELECOMMUNICATIONS OPERATOR Sensory: Normal: RUE, LUE, RLE, LLE, Face - Cardiac Rhythm: Regular Murmur: None - Pulmonary Breath Sounds: bilateral Clear Respiratory Effort: Symmetrical Anesthesia Assess/Plan ASA Score: 3 (Smoker, DVT, PVDz, HTN, Chol, DM) Modified Cairo Scale for Level of Consciousness: Cooperative, oriented, and tranquil Anesthetic Plan: General Monitoring Plan: Standard Monitors, A-Line Recovery Plan: PACU Anes Supervising Prov Stmt: Pt seen/evaluated, R&B Discussed, questions answered and consent obtained. Magda Branch MD
--- NOTE | 2017-08-04 10:24 | Internal Med Progress Note ---
Date of Encounter: 08/04/17 Time of Encounter: 15:00 - Assessment and plan (1) Severe peripheral arterial disease Current Visit: Yes Status: Acute Assessment and plan: Patient with history of progressive claudication over several months. Studies obtained at the [facility] today with reports of popliteal artery occlusion in the right leg and DVT in the left popliteal vein. Vascular surgery consulted by emergency department, evaluated in the emergency department. Continue heparin drip. Angiogram and stress test completed yesterday. Patient scheduled for fem pop bypass this am (2) Deep vein thrombosis of lower extremity Current Visit: Yes Status: Acute Assessment and plan: Will obtain doppler ultrasund of lower extremities as [facility] records do no show any studies for DVT. continue on heparin. Plan to transition to po anticoagulation once clear from vascular surgery Qualifiers: Affected thrombotic vein of extremity: popliteal Chronicity: acute Laterality: left Qualified Code(s): I82.432 - Acute embolism and thrombosis of left popliteal vein (3) Hyperlipidemia Current Visit: Yes Status: Chronic Assessment and plan: Resume statin once clear from vascular surgery Qualifiers: Hyperlipidemia type: unspecified Qualified Code(s): E78.5 - Hyperlipidemia , unspecified (4) Diabetes mellitus with peripheral angiopathy without gangrene Current Visit: Yes Status: Chronic Assessment and plan: Continue insulin. Monitor fingersticks Qualifiers: Diabetes mellitus type: type 2 Diabetes mellitus roasterman insulin use: unspecified roasterman insulin use status Qualified Code(s): E11.51 - Type 2 diabetes mellitus with diabetic peripheral angiopathy without gangrene - Time Spent With Patient Total time spent is greater than 50% in coordination of care (as documented) at patient's floor/unit and/or counseling patient: - Subjective Interval history: No acute events overnight. Went for fem pop surgery this am - Constitutional Vitals: Temp Pulse Resp BP Pulse Ox 98.4 F 63 18 145/82 98 08/04/17 08:05 08/04/17 08:05 08/04/17 08:05 08/04/17 08:05 08/04/17 08:05 General appearance: Present: pleasant, no acute distress, answers questions appropriately - Head Head exam: Present: atraumatic, normocephalic - Respiratory Respiratory exam: Present: CTAB. Absent: accessory muscle use, rales, rhonchi, wheezes - Cardiovascular Cardiovascular exam: Present: RRR, +S1, +S2. Absent: diastolic murmur, gallop, rubs, systolic murmur - Neurological Exam Neurological exam: Present: CN II-XII intact, oriented X3, no focal deficits. Absent: pronater drift, facial droop, speech deficit Internal Medicine: Result - Labs CBC & Chem 7: 08/04/17 03:18 08/04/17 03:18 Labs: Short CBC 08/04/17 Range/Units 03:18 WBC 6.2 (4.3-11.1) K/mcL Hgb 13.7 (12.9-16.9) g/dL Hct 39.6 (37.5-50.1) % Plt Count 158 (140-400) K/mcL Neutrophils # 3.2 (1.6-8.9) K/mcL BMP 08/04/17 03:18 Sodium 138 Potassium 4.0 Chloride 105 Carbon Dioxide 26 BUN 18 Creatinine 0.92 Glucose 254 H Calcium 9.5 - ABG Interpretation ABG results: PT/INR, D-dimer PT 11.5 Seconds (9.4-12.1) 08/03/17 03:34 Consult Discharge Plan - Plan [facility]: [facility] - 08/13/17 9:30 am
[2017-08-04] MEDS ORDERED: *HR* FentaNYL (PF) 100 MCG/2 ML VIAL ONE ×2 (10:26→10:33)
[2017-08-04] MEDS ORDERED: *HR* Midazolam HCl 2 MG/2 ML VIAL ONE ×2 (10:26→10:41)
[2017-08-04] MEDS ORDERED: Heparin 1,000 UNITS/500 mL 500 ML ONE (10:27)
[2017-08-04] MEDS ORDERED: Lidocaine -MPF 2% 5 ML VIAL ONE (10:30)
[2017-08-04] MEDS ORDERED: Dexamethasone 4 MG/ML VIAL IVP ONE (10:31)
[2017-08-04] MEDS ORDERED: Ondansetron 4 MG/2 ML VIAL IVP ONE (10:31)
[2017-08-04] MEDS ORDERED: *HR* Labetalol 20 MG/4 ML SYRINGE IVP PRN ×2 (10:31→15:49)
[2017-08-04] MEDS ORDERED: *HR* Promethazine 25 MG/ML VIAL IVP PRN (10:31)
[2017-08-04] MEDS ORDERED: *HR* Propofol 200 MG/20 ML VIAL IVP ONE (10:33)
[2017-08-04] MEDS ORDERED: Lidocaine -MPF 4% 5 ML AMPUL ONE (10:34)
[2017-08-04] MEDS ORDERED: Lidocaine -MPF 2% 2 ML VIAL ONE (10:34)
[2017-08-04] MEDS ORDERED: *HR* Rocuronium Bromide 50 MG/5 ML VIAL ONE (10:34)
[2017-08-04] MEDS ORDERED: Ondansetron 4 MG/2 ML VIAL ONE (10:34)
[2017-08-04] MEDS ORDERED: Dexamethasone 4 MG/ML VIAL ONE (10:34)
[2017-08-04] MEDS ORDERED: *HR* Phenylephrine 10 MG/ML VIAL ONE (10:39)
[2017-08-04] MEDS ORDERED: *HR* Heparin 5,000 UNIT/ML VIAL ONE ×2 (10:42→14:02)
[2017-08-04] MEDS ORDERED: Water for inj. (sterile) 10 ML IV ONE (10:42)
[2017-08-04] MEDS ORDERED: *HR* Remifentanil 1 MG VIAL IVP ONE ×2 (10:45)
--- NOTE | 2017-08-04 11:01 | Anesthesia Procedures ---
Date of Encounter: 08/04/17 Time of Encounter: 10:45 Procedures: Anesthesia - Arterial Line Consent obtained: verbal consent Time out performed: Yes Sedation: Versed (mg): 4 Sedation: Fentanyl (mcg): 100 Supplemental Oxygen via Nasal Cannula (L/min): 2 Local Anesthetic: Lidocaine 1% Amount of Anesthetic used (mls): 0.5 Size (Gauge): 20 Length (inches): 1 3/4 Technique Used: sterile prep, direct puncture technique Post-Procedure: line taped into place Patient tolerated procedure: well, no complications Complications: none Site: Radial R Comments: Sterile P&D. Landmarks identified. 0.5mL x 2% Lido Local. Radial artery readily palpated, subsequently cannulated w/ 20G arrow. + BRB ascending. Seldinger technique. Guidewire advanced. Catheter easily over guidewire without immediate complications. Pulsatile BRB flow noted to continue in pressure line. Catheter secured. Pt tolerated procedure well. Magda Branch MD
[2017-08-04] MEDS ORDERED: Heparin 1,000 UNITS/500 mL 1,500 ML ONE (11:20)
[2017-08-04] MEDS ORDERED: Vancomycin 1,000 MG VIAL ONE ×2 (11:20→12:44)
[2017-08-04] MEDS ORDERED: *HR* Morphine 10 MG/ML VIAL ONE (14:37)
[2017-08-04] MEDS: *HR* HYDROmorphone (PF) 1 MG/ML SYRINGE IVP PRN ×2 (15:05→15:16)
--- NOTE | 2017-08-04 15:21 | Operative Note ---
Date of procedure: 08/04/17 Pre-op diagnosis: Peripheral vascular disease with rest pain Post-op diagnosis: same Procedure: 1. Right superficial femoral artery to below knee popliteal artery bypass with 6mm PTFE distaflo minicuff graft. 2. Right popliteal endarterectomy with 4 togolese kavitha embolectomy catheter. 3. Right anterior tibial and tibioperoneal trunk thrombectomy with 3 togolese kavitha embolectomy catheter. Complications: None Anesthesia: GETA Surgeon: Gus Tobin Was there an central supply assistant present: No Estimated blood loss (cc): 50 Specimen: Right lower extremity thrombus and plaque Condition: stable Disposition: PACU Procedure in Detail: The patient was identified in the preoperative area. The risks, benefits, and alternatives of the procedure were discussed. All questions were answered. The patient was taken to the operating room and placed in supine position on the operating room table. After the induction of general endotracheal anesthesia, he was cleaned and draped in normal sterile fashion. An incision was made on the right medial distal thigh sharply. Hemostasis was obtained with electrocautery. Through a process of blunt, sharp, and electrocautery dissection, the right distal superficial femoral artery and above -knee popliteal artery were dissected proximally and distally and surrounded with vessel loops. An incision was made on the right medial calf sharply. Hemostasis was obtained with electrocautery. Through a process of blunt, sharp , and electrocautery dissection, the right below-knee popliteal artery was dissected proximally and distally and surrounded with vessel loops. A graft was tunneled between the popliteal and femoral incisions. The patient received 5000 units of heparin intravenously. Additional heparin was given throughout the case to maintain adequate anticoagulation. The popliteal vessels were occluded and a longitudinal arteriotomy was made in the popliteal artery. Significant thrombus was identified within the lumen. A 4 togolese kavitha embolectomy catheter was passed proximally and distally. Significant thrombus was retrieved. The catheter would not be advanced beyond the the mid popliteal artery proximally. No retrograde flow was noted distally. A 3 togolese kavitha embolectomy catheter was then passed distally multiple times through the anterior tibial artery and tibioperoneal trunk. Additional thrombus was removed and retrograde flow was noted. The vessels were flushed with heparinzed saline. The distal end of the graft was sutured to the popliteal arteriotomy with a running 6-0 Prolene, but not tied. Heparinized saline was infused into the lumen. Tension was applied to the femoral vessel loops. An arteriotomy was made in the distal superficial femoral artery and the graft was cut to fit the arteriotomy. The graft was anastamosed with a running 6-0 Prolene. The vessels were flushed through the graft and heparin was infused into the lumen. The graft was clamped with an atraumatic clamp. Thrombin and gelfoam were used at the proximal anastamosis. The distal arterial anastomosis was completed and prior to completing the closure, the popliteal vessels were flushed and reoccluded. Heparinized saline was infused into the lumen. The anastamosis was tied and then flow was restored. Polyphasic signals were noted distal to the distal anastomosis as well as at the posterior tibial artery. Wounds were irrigated with antibiotic-containing saline. Thrombin and gelfoam were used to aid in hemostasis. Platelet rich and platelet poor plasma were infused into the wounds. Meticulous hemostasis was obtained throughout the wound with electrocautery. Wounds were reapproximated with layers of 2-0 and 3-0 Vicryl. Skin was reapproximated with 3-0 Monocryl. Sterile dressing was applied. The patient was extubated and taken to recovery room in stable condition.
[2017-08-04] MEDS ORDERED: Acetaminophen IV 1,000 MG/100 ML INFUS..BTL IVPB ONE (15:30)
[2017-08-04] MEDS ORDERED: *HR* HYDROmorphone 2 MG TABLET PO ONE (15:34)
[2017-08-04] MEDS ORDERED: *HR* Dextrose 50 % in Water (Syg) 50 ML SYRINGE IVP PRN (15:49)
[2017-08-04] MEDS ORDERED: *HR* HYDROcodone/Acet 5/325 mg TABLET PO PRN ×2 (15:49)
[2017-08-04] MEDS ORDERED: Dextrose Gel 15 GM/37.5 ML TUBE PO PRN ×2 (15:49)
[2017-08-04] MEDS ORDERED: Ondansetron 4 MG/2 ML VIAL IVP PRN ×2 (15:49)
[2017-08-04] MEDS ORDERED: D5% in Water 1,000 ML IVC PRN (15:49)
[2017-08-04] MEDS ORDERED: *HR* Metoprolol 5 MG/5 ML VIAL IVP PRN (15:49)
[2017-08-04] MEDS ORDERED: Naloxone 0.4 MG/ML INJ IVP PRN ×2 (15:49)
[2017-08-04] MEDS ORDERED: Acetaminophen 325 MG TABLET PO PRN (15:49)
[2017-08-04] MEDS ORDERED: Pregabalin 75 MG CAPSULE PO ONE (15:59)
[2017-08-04] MEDS ORDERED: CeFAZolin Pre 2,000 MG/100 ML 2,000 MG/100 ML BAG IVPB SCH (16:00)
[2017-08-04] MEDS ORDERED: Pregabalin 75 MG CAPSULE ONE (16:00)
--- NOTE | 2017-08-04 16:33 | Anesthesia Evaluation Post Op ---
Date of Encounter: 08/04/17 Time of Encounter: 16:26 - Vital Signs Vital Signs: vss - Lungs Lungs: Clear Ascult./Percussion - Airway Airway: Non-obstructed - Cardiovascular Baseline Rhythm - Mental Status Mental Status: Asleep with brisk response to light stimulation - Pain Pain Scale used: Reva (Faces) - Nausea Vomiting Nausea Vomiting: Not Present - Hydration Hydration: Ice chips - Discharge PostOp Status: Transfer Patient to floor
[2017-08-04] MEDS ORDERED: ceFAZolin 2,000 MG in 0.9 % Sodium Chloride 100 ML IVPB SCH (17:00)
[2017-08-04] MEDS ORDERED: *HR* Rivaroxaban 10 MG TABLET PO SCH (17:00)
[2017-08-04 17:36] LABS: Basophils % 0.1 %; Eosinophils % 0.4 %; Hematocrit 40.3 % (37.5-50.1); Hemoglobin 13.9 g/dL (12.9-16.9); Immature Granulocytes % 0.3 % (0-4); Lymphocytes # 0.7 K/mcL (0.6-4.6); Lymphocytes % 8.9 %; Mean Corpuscular HGB Conc 34.5 g/dL (31.6-35.5); Mean Platelet Volume 10.7 fL (9.4-12.4); Monocytes # 0.1 K/mcL (0.0-1.3); Monocytes % 1.5 %; Neutrophils # 6.6 K/mcL (1.6-8.9); Platelet Count 145 K/mcL (140-400); Red Blood Count 4.48 M/mcL (4.19-5.50); Red Cell Distribution Width 12.5 % (11.5-14.5); Segmented Neutrophils % 88.8 %
[2017-08-04 18:05] LABS: Estimated Average Glucose 229 mg/dl; Hemoglobin A1C 9.6 %
[2017-08-05 05:14] LABS: Basophils % 0.1 %; Hematocrit 38.2 % (37.5-50.1); Immature Granulocytes % 0.2 % (0-4); Lymphocytes % 9.7 %; Mean Corpuscular Hemoglobin 30.2 pg (28.0-33.3); Mean Corpuscular Volume 88.8 fL (83.0-100.0); Mean Platelet Volume 10.9 fL (9.4-12.4); Monocytes # 0.6 K/mcL (0.0-1.3); Monocytes % 5.4 %; Neutrophils # 9.1 K/mcL (1.6-8.9); Platelet Count 159 K/mcL (140-400); Red Cell Distribution Width 12.6 % (11.5-14.5); Segmented Neutrophils % 84.6 %
[2017-08-05 05:31] LABS: BUN/Creatinine Ratio 20 (6-26); Blood Urea Nitrogen 20 mg/dL (8-23); Calcium 8.9 mg/dL (8.6-10.3); Carbon Dioxide 25 mEq/L (23-29); Chloride 102 mEq/L (98-107); Glucose 296 mg/dL (70-105); Osmolality,Calculated 292 (280-300); Potassium 4.8 mEq/L (3.5-5.1); Sodium 134 mEq/L (136-145); eGFR For African Americans > 60 (> 60); eGFR For Non-African Americans > 60 (> 60)
--- NOTE | 2017-08-05 08:13 | Oncology Inp Progress Note ---
Date of Encounter: 08/05/17 Time of Encounter: 17:00 (1) PAD (peripheral artery disease) Current Visit: Yes Status: Acute Assessment and plan: RT popliteal occlusion was symptomatic s/p rt popliteal tibial thrombo endarterectomy, s/p femoro-popliteal bypass. He has quit smoking today. ON heparin drip post surgery. Anti platelet therapy and further surgery LL ext at later date-per vascular surgery/patient report Left lower ext DVT? obtain reports on doppler studies, out patient anticoagulation to be considered if acute. Plan d/w patient and . Oncology: Subj Interval history: PAtient seen 08/04/17 after vascular procedure 15 mts after he returned to the room. Lower ext discomfort - Constitutional Vitals: Vital Signs Temp Pulse Resp BP Pulse Ox 08/05/17 04:40 98 F 63 16 107/72 98 08/05/17 00:10 97.7 F 61 16 97/61 100 08/04/17 23:45 57 08/04/17 21:55 97.8 F 84 18 107/63 100 08/04/17 19:45 82 08/04/17 18:00 97.7 F 67 18 144/85 100 08/04/17 17:30 97.7 F 59 18 117/70 99 08/04/17 17:00 97.7 F 61 18 110/71 97 08/04/17 16:51 97.7 F 63 20 117/74 100 08/04/17 16:45 97.7 F 63 20 117/74 100 08/04/17 16:30 97.7 F 63 20 123/69 100 08/04/17 16:13 61 14 120/80 100 08/04/17 16:03 64 14 132/77 100 08/04/17 15:53 97.5 F L 64 16 129/98 100 08/04/17 15:43 70 16 140/82 98 08/04/17 15:33 66 16 139/80 100 08/04/17 15:23 97.5 F L 67 16 149/85 99 08/04/17 15:13 74 14 156/91 99 08/04/17 15:03 71 16 161/83 100 08/04/17 14:53 97.7 F 80 16 155/91 100 08/04/17 08:05 98.4 F 63 18 145/82 98 Intake and Output 08/04/17 08/05/17 08/05/17 23:59 07:59 15:59 Intake Total 240 / 240 490 / 490 Output Total 400 / 400 850 / 850 Balance -160 / -160 -360 / -360 Intake: IV Fluids 250 / 250 Vancocin 1,000 MG In 0.9 % 250 / 250 Sodium Chloride 250 ML @ 167 mls/hr IVPB ONCE ONE Rx#: [id number] Oral 240 / 240 240 / 240 Output: Urine 400 / 400 Catheter 850 / 850 Other: Meal Dinner Percent of Meal Consumed 100% Weight 80.2 kg Blood Glucose* 266 Patient Weight 08/05/17 23:59 Weight 80.2 kg General appearance: average body habitus - Head Head exam: Present: atraumatic, normal inspection - Eye Eye exam: Present: sclera anicteric - Respiratory Respiratory exam: Present: CTAB - Extremities Exam Additional comments: rt lower ext s/p surgery/surgical dressing. - Neurological Exam Neurological exam: Present: alert, CN II-XII intact, oriented X3 Oncology: Obj Data - Labs CBC & Chem 7: 08/05/17 04:53 08/05/17 04:53 Labs: Laboratory Results - last 24 hr 08/04/17 08/04/17 08/04/17 03:18 07:45 08:20 WBC RBC Hgb Hct MCV MCH MCHC RDW Plt Count MPV Immature Gran % Seg Neutrophils % Lymphocytes % Monocytes % Eosinophils % Basophils % Neutrophils # Lymphocytes # Monocytes # Eosinophils # Basophils # APTT 65.8 H Sodium Potassium Chloride Carbon Dioxide BUN Creatinine Est GFR ( Amer) Est GFR (Non-Af Amer) BUN/Creatinine Ratio Glucose POC Glucose 223 H Est Mean Plasma Glucose 229 Hemoglobin A1c 9.6 H Calculated Osmolality Calcium 08/04/17 08/04/17 08/04/17 16:53 17:24 21:54 WBC 7.4 RBC 4.48 Hgb 13.9 Hct 40.3 MCV 90.0 MCH 31.0 MCHC 34.5 RDW 12.5 Plt Count 145 MPV 10.7 Immature Gran % 0.3 Seg Neutrophils % 88.8 Lymphocytes % 8.9 Monocytes % 1.5 Eosinophils % 0.4 Basophils % 0.1 Neutrophils # 6.6 Lymphocytes # 0.7 Monocytes # 0.1 Eosinophils # 0.0 Basophils # 0.0 APTT Sodium Potassium Chloride Carbon Dioxide BUN Creatinine Est GFR ( Amer) Est GFR (Non-Af Amer) BUN/Creatinine Ratio Glucose POC Glucose 226 H 266 H Est Mean Plasma Glucose Hemoglobin A1c Calculated Osmolality Calcium 08/05/17 08/05/17 04:53 04:53 WBC 10.7 RBC 4.30 Hgb 13.0 Hct 38.2 MCV 88.8 MCH 30.2 MCHC 34.0 RDW 12.6 Plt Count 159 MPV 10.9 Immature Gran % 0.2 Seg Neutrophils % 84.6 Lymphocytes % 9.7 Monocytes % 5.4 Eosinophils % 0.0 Basophils % 0.1 Neutrophils # 9.1 H Lymphocytes # 1.0 Monocytes # 0.6 Eosinophils # 0.0 Basophils # 0.0 APTT Sodium 134 L Potassium 4.8 Chloride 102 Carbon Dioxide 25 BUN 20 Creatinine 1.00 Est GFR ( Amer) > 60 Est GFR (Non-Af Amer) > 60 BUN/Creatinine Ratio 20 Glucose 296 H POC Glucose Est Mean Plasma Glucose Hemoglobin A1c Calculated Osmolality 292 Calcium 8.9 - ABG Interpretation ABG results: PT/INR, D-dimer PT 11.5 Seconds (9.4-12.1) 08/03/17 03:34 Consult Discharge Plan - Plan Referrals: Gus Tobin MD [Partnered Physician] - 08/10/17 2:10 pm PIERO,PCP [Primary Care Provider] - 08/13/17 9:30 am
--- NOTE | 2017-08-05 08:31 | Vascular/Endovas Progress Note ---
Date of Encounter: 08/05/17 Time of Encounter: 08:05 - Assessment and plan (1) Atherosclerosis of [place] arteries of extremities with rest pain, right leg Current Visit: Yes Status: Chronic The patient is postoperative day #1 after a right lower extremity thromboendarterectomy and right femoral to popliteal artery bypass. He is healing well. His compartments are soft. He has polyphasic pedal signals. He appereared to have evidence of chronic thromosis versus smblus in the popliteal artery. A remote emblic event is suspected bilaterally. He has been started on Xarelto. He may be discharged from a vascular standpoint. He will follow- up in vascular clini c in 2 weeks for further evaluation and to discuss left lower extremity revascularization. (2) Essential hypertension Current Visit: Yes Status: Chronic He was counseled again regarding atherosclerotic risk factor reduction. (3) Mixed hyperlipidemia Current Visit: Yes Status: Chronic (4) Diabetes mellitus with peripheral angiopathy without gangrene Current Visit: Yes Status: Chronic Qualifiers: Diabetes mellitus type: type 2 Diabetes mellitus penitentiary insulin use: unspecified long term care social worker insulin use status Qualified Code(s): E11.51 - Type 2 diabetes mellitus with diabetic peripheral angiopathy without gangrene (5) Tobacco abuse Current Visit: Yes Status: Chronic He was counseled again regarding smoking cessation. Discharge with nicotine patches. (6) Deep vein thrombosis of lower extremity Current Visit: Yes Status: Acute The patient has a left lower extremity DVT. He will be started on a heparid drip. Qualifiers: Affected thrombotic vein of extremity: popliteal Chronicity: acute Laterality: left Qualified Code(s): I82.432 - Acute embolism and thrombosis of left popliteal vein - Subjective Interval history: The patient reports that his right leg is feeling much beter today. He complains of incisional pain and tenderness. He denies chest pain or shortness of breath. Vital Signs, Last 4 Hours Temp Pulse Resp BP Pulse Ox 08/05/17 08:01 98.1 F 66 19 117/62 96 08/05/17 04:40 98 F 63 16 107/72 98 - Physical Examination General: Present: Conversant, No Apparent Distress Neck: Absent: JVD Cardiac: Present: Reg Rate and Rhythm Lungs: Present: Normal Breath Sounds Neuro: Present: Alert and responsive, No focal deficits noted, Motor nerves grossly intact, Sensory nerves grossly intact Vascular: Present: Normal capillary refill, Pulse, absent (left tibials), Pulse , normal (right lower extremity), Color/Temperature (right foot warm), Surgical incisions (no hematoma, clean and dry) Abdomen: Present: Soft Skin: Present: No rashes noted on visualized skin - VTE Documentation of Mechanical Device: Intermittent pneumatic compression device Results 08/05/17 04:53 08/05/17 04:53 Lab Results, Last 24 hours 08/04/17 08/04/17 08/05/17 08:20 17:24 04:53 WBC 7.4 10.7 Hgb 13.9 13.0 Hct 40.3 38.2 Plt Count 145 159 APTT 65.8 H Sodium Potassium Chloride Carbon Dioxide BUN Creatinine Glucose Calcium 08/05/17 04:53 WBC Hgb Hct Plt Count APTT Sodium 134 L Potassium 4.8 Chloride 102 Carbon Dioxide 25 BUN 20 Creatinine 1.00 Glucose 296 H Calcium 8.9 Consult Discharge Plan - Plan Additional Instructions: May remove bandages and shower on 08/06/17. Wash wounds gently and pat to dry. Apply dry gauze to wounds daily for 7 days. No tub baths or swimming until 08/23/17. Call Dr. Tobin at [phone] with questions or concerns. Referrals: Gus Tobin MD [Partnered Physician] - 08/10/17 2:10 pm [place],PCP [Primary Care Provider] - 08/13/17 9:30 am
[2017-08-05] MEDS: Insulin LISPRO 300 UNITS/3 ML VIAL SQ SCH ×2 (08:56→12:45)
[2017-08-05] MEDS ORDERED: Lisinopril-HCTZ 20-12.5mg TABLET PO SCH (09:00)
[2017-08-05] MEDS ORDERED: Aspirin 81 MG TAB.CHEW PO SCH (09:00)
[2017-08-05 11:27] VITALS: BP 116/74
--- NOTE | 2017-08-05 11:40 | Internal Med Progress Note ---
Date of Encounter: 08/05/17 Time of Encounter: 11:00 - Assessment and plan (1) Severe peripheral arterial disease Current Visit: Yes Status: Acute Assessment and plan: Patient with history of progressive claudication over several months. Studies obtained at the [facility] today with reports of popliteal artery occlusion in the right leg and DVT in the left popliteal vein. Vascular surgery consulted by emergency department, evaluated in the emergency department. Continue heparin drip. Angiogram and stress test completed yesterday. Patient had right lower extremity thomobarterectomy and right fem pop bypass. Plan for LLE extremity surgery outpatient. Per vascular, patient has evidence of chronic popliteal artery thrombus vs embolic event. Will continue on xarelto. F/U ultrasound to r/o DVT (2) Deep vein thrombosis of lower extremity Current Visit: Yes Status: Acute Assessment and plan: Will obtain doppler ultrasund of lower extremities as [facility] records do no show any studies for DVT. continue on heparin. Plan to transition to po anticoagulation once clear from vascular surgery Qualifiers: Affected thrombotic vein of extremity: popliteal Chronicity: acute Laterality: left Qualified Code(s): I82.432 - Acute embolism and thrombosis of left popliteal vein (3) Hyperlipidemia Current Visit: Yes Status: Chronic Assessment and plan: Resume statin once clear from vascular surgery Qualifiers: Hyperlipidemia type: unspecified Qualified Code(s): E78.5 - Hyperlipidemia , unspecified (4) Diabetes mellitus with peripheral angiopathy without gangrene Current Visit: Yes Status: Chronic Assessment and plan: Continue insulin. 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 Had fem-pop surgery in the last 24hrs - Constitutional Vitals: Temp Pulse Resp BP Pulse Ox 98.3 F 54 18 116/74 96 08/05/17 11:24 08/05/17 11:24 08/05/17 11:24 08/05/17 11:24 08/05/17 11:24 General appearance: Present: pleasant, no acute distress, answers questions appropriately - Head Head exam: Present: atraumatic, normocephalic - Eye Eye exam: Present: PERRL, conjuntiva pink, sclera anicteric Pupils: Present: PERRL - Neck Neck exam general surgery: Present: supple, trachea midline. Absent: lymphadenopathy - Respiratory Respiratory exam: Present: CTAB. Absent: accessory muscle use, rales, rhonchi, wheezes - Cardiovascular Cardiovascular exam: Present: RRR, +S1, +S2. Absent: diastolic murmur, gallop, rubs, systolic murmur - GI/Abdominal GI/Abdominal exam: Present: normal bowel sounds, soft, no peritoneal signs. Absent: distended, tenderness - Extremities Exam Extremities exam: Present: calf tenderness, pedal edema, warm, radial pulses palpable and symmetrical - Neurological Exam Neurological exam: Present: CN II-XII intact, oriented X3, no focal deficits. Absent: pronater drift, facial droop, speech deficit - Skin Skin exam: Present: dry, intact Internal Medicine: Result - Labs CBC & Chem 7: 08/05/17 04:53 08/05/17 04:53 Labs: Short CBC 08/04/17 08/05/17 Range/Units 17:24 04:53 WBC 7.4 10.7 (4.3-11.1) K/mcL Hgb 13.9 13.0 (12.9-16.9) g/dL Hct 40.3 38.2 (37.5-50.1) % Plt Count 145 159 (140-400) K/mcL Neutrophils # 6.6 9.1 H (1.6-8.9) K/mcL BMP 08/05/17 04:53 Sodium 134 L Potassium 4.8 Chloride 102 Carbon Dioxide 25 BUN 20 Creatinine 1.00 Glucose 296 H Calcium 8.9 - ABG Interpretation ABG results: PT/INR, D-dimer PT 11.5 Seconds (9.4-12.1) 08/03/17 03:34 - VTE Documentation of Mechanical Device: Intermittent pneumatic compression device Consult Discharge Plan - Plan Instructions: Femoropopliteal Bypass (DC), Deep Venous Thrombosis (DC), Peripheral Vascular Disorders (DC), Angiography (DC) Additional Instructions: May remove bandages and shower on 08/06/17. Wash wounds gently and pat to dry. Apply dry gauze to wounds daily for 7 days. No tub baths or swimming until 08/23/17. Call Dr. Tobin at [phone] with questions or concerns. Referrals: Gus Tobin MD [Partnered Physician] - 08/10/17 2:10 pm [place],PCP [Primary Care Provider] - 08/13/17 9:30 am Prescriptions: HYDROcodone/Acet 5/325 mg [[place] 5-325 mg] 2 tab PO Q6HR PRN 10 Days #30 tablet PRN Reason: Severe Pain Rivaroxaban [Xarelto] 15 mg PO BID #41 tablet Rivaroxaban [Xarelto] 20 mg PO 1700 #30 tablet
--- NOTE | 2017-08-05 14:21 | Discharge Summary ---
- NOTES TO OUTPATIENT PROVIDER Notes to Outpatient Provider: Patient needs a bilateral duplex ultrasound to r/ o DVT. He reportedly had a dvt diagnosed at the [facility] but we don't have that report / any evidence of that. Vascular surgery has started him on xarelto for popliteal artery thrombus, but we need to have DVT clarified. Orders not resulted at time of discharge: Pending orders 08/03/17 10:01 NM yahaira perf SPECT multi [NM] Routine 08/04/17 14:50 Surgical Pathology [PTH] Routine 08/05/17 11:52 Venous Ultrasound [EV venous imaging LE BI] Stat 08/06/17 04:00 Basic Metabolic Panel AM 0400 CBC [Complete Blood Count] [HEME] AM 0400 08/07/17 04:00 Basic Metabolic Panel AM 0400 CBC [Complete Blood Count] [HEME] AM 0400 08/08/17 04:00 Basic Metabolic Panel AM 0400 CBC [Complete Blood Count] [HEME] AM 0400 08/09/17 04:00 Basic Metabolic Panel AM 0400 CBC [Complete Blood Count] [HEME] AM 0400 Date of Encounter: 08/05/17 Time of Encounter: 14:00 - Discharge Diagnosis (1) Severe peripheral arterial disease Priority: Primary Status: Acute Assessment and Plan: Patient with history of progressive claudication over several months. Studies obtained at the [facility] today with reports of popliteal artery occlusion in the right leg and DVT in the left popliteal vein. Vascular surgery consulted by emergency department, evaluated in the emergency department. Continue heparin drip. Angiogram and stress test completed yesterday. Patient had right lower extremity thomobarterectomy and right fem pop bypass. Plan for LLE extremity surgery outpatient. Per vascular, patient has evidence of chronic popliteal artery thrombus vs embolic event. Will continue on xarelto. Ultrasound was ordered, but nurse reports it can;t be done till later tonight per radiology and patient wants to go home and have study done as an outpatient. He will be discharged on xarelto which had been started by vascular surgery (2) Deep vein thrombosis of lower extremity Priority: Primary Status: Acute Assessment and Plan: Will obtain doppler ultrasund of lower extremities as [facility]. Has been started on xarelto per vascular surgery. Qualifiers: Affected thrombotic vein of extremity: popliteal Chronicity: acute Laterality: left Qualified Code(s): I82.432 - Acute embolism and thrombosis of left popliteal vein (3) Hyperlipidemia Priority: Secondary Status: Chronic Assessment and Plan: Resume statin Qualifiers: Hyperlipidemia type: unspecified Qualified Code(s): E78.5 - Hyperlipidemia , unspecified (4) Diabetes mellitus with peripheral angiopathy without gangrene Priority: Secondary Status: Chronic Assessment and Plan: Continue insulin. Monitor fingersticks Qualifiers: Diabetes mellitus type: type 2 Diabetes mellitus rn long term care insulin use: unspecified rn long term care insulin use status Qualified Code(s): E11.51 - Type 2 diabetes mellitus with diabetic peripheral angiopathy without gangrene Hospital course: Mr. Cheung is a 62 year old male - Time Spent with Patient Total time spent providing and/or coordinating discharge services: - Discharge Medications Prescriptions: HYDROcodone/Acet 5/325 mg [[place] 5-325 mg] 2 tab PO Q6HR PRN 10 Days #30 tablet PRN Reason: Severe Pain Rivaroxaban [Xarelto] 15 mg PO BID #41 tablet Rivaroxaban [Xarelto] 20 mg PO 1700 #30 tablet Home Medications: Atorvastatin [Lipitor] 40 mg PO HS 08/02/17 [History] Cilostazol [Pletal] 100 mg PO BID 08/02/17 [History] Gabapentin [Neurontin] 300 mg PO BID 08/02/17 [History] Glimepiride [Amaryl] 4 mg PO DAILY 08/02/17 [History] Lisinopril-HCTZ 20-12.5 [Prinzide 20-12.5] 1 tab PO DAILY 08/02/17 [History] Metformin HCl [Metformin HCl ER] 2,000 mg PO DAILY 08/02/17 [History] Metoprolol Tartrate 50 mg PO BID 08/02/17 [History] SitaGLIPtin [Januvia] 200 mg PO DAILY 08/02/17 [History] Triamterene/HCTZ 37.5/25mg [Dyazide] 1 tab PO DAILY 08/02/17 [History] HYDROcodone/Acet 5/325 mg [[place] 5-325 mg] 2 tab PO Q6HR PRN 10 Days #30 tablet 08/05/17 [Rx] Rivaroxaban [Xarelto] 15 mg PO BID #41 tablet 08/05/17 [Rx] Rivaroxaban [Xarelto] 20 mg PO 1700 #30 tablet 08/05/17 [Rx] Allergies/Adverse Reactions: 3 Allergy/AdvReac Type Severity Reaction Status Date / Time Oxycodone [From Percocet] AdvReac Itching Verified 08/02/17 18:39 Date of admission: 08/02/17 17:59 Primary care physician: PCP PIERO. follow up with hematology at the [facility] and vascular surgery Consults: 08/04/17 10:15 Consult to Oncology Hematology [CONS] Routine Consulting Provider: On[facility] Reason for Consult: Acute DVT- rn long term care anticoagulation Call Completed: Yes - Constitutional Vitals: Temp Pulse Resp BP Pulse Ox 98.3 F 59 20 116/74 97 08/05/17 11:24 08/05/17 12:50 08/05/17 12:49 08/05/17 11:24 08/05/17 12:49 General appearance: Present: pleasant, no acute distress, answers questions appropriately - Head Head exam: Present: atraumatic, normocephalic - Eye Eye exam: Present: PERRL, conjuntiva pink, sclera anicteric Pupils: Present: PERRL - Neck Neck exam general surgery: Present: supple, trachea midline. Absent: lymphadenopathy - Respiratory Respiratory exam: Present: CTAB. Absent: accessory muscle use, rales, rhonchi, wheezes - Cardiovascular Cardiovascular exam: Present: RRR, +S1, +S2. Absent: diastolic murmur, gallop, rubs, systolic murmur - GI/Abdominal GI/Abdominal exam: Present: normal bowel sounds, soft, no peritoneal signs. Absent: distended, tenderness - Extremities Exam Extremities exam: Present: warm, radial pulses palpable and symmetrical. Absent : calf tenderness, cyanotic, pedal edema - Neurological Exam Neurological exam: Present: CN II-XII intact, oriented X3, no focal deficits. Absent: pronater drift, facial droop, speech deficit - Skin Skin exam: Present: dry, intact - Patient Status Disposition: Home, Self-Care Condition: Good - Ambulatory Orders Ambulatory Orders: EV venous imaging LE BI Time Frame: 1 Week, Facility: [facility], Location: [facility] - Discharge Instructions Instructions: Deep Venous Thrombosis (DC), Peripheral Vascular Disorders (DC), Angiography (DC) Follow Up With: Gus Tobin MD [Partnered Physician] - 08/10/17 2:10 pm [place],PCP [Primary Care Provider] - 08/13/17 9:30 am Additional Instructions: May remove bandages and shower on 08/06/17. Wash wounds gently and pat to dry. Apply dry gauze to wounds daily for 7 days. No tub baths or swimming until 08/23/17. Call Dr. Tobin at [phone] with questions or concerns. - Diet and Activity Activity: ambulate only with your walker - VTE Documentation of Mechanical Device: Intermittent pneumatic compression device
--- NOTE | 2017-08-06 09:14 | Oncology Inp Consult Note ---
Date of Encounter: 08/04/17 Time of Encounter: 17:00 Assessment and Plan (1) PAD (peripheral artery disease) Status: Acute Assessment and plan: RT popliteal occlusion s/p rt popliteal tibial thrombo endarterectomy, s/p femoro-popliteal bypass. He has quit smoking today. Encouraged cessation and control of lipids, sugar. ON heparin drip post surgery. Anti platelet therapy and further surgery LL ext at later date-per vascular surgery/patient report Left lower ext DVT? obtain reports on doppler studies, out patient anticoagulation to be considered if acute. Will f/u outpt in clinic for any further w/u - Data of Consult Requesting Physician: Zane Herndon Primary Care Provider: LILIA CO Family Provider: Sharon Provider - Consult Narrative Reason for consult: DVT, PVD History of present illness: Mr. Cheung is a 62 year old male was seen on consultation by me on 08/05/2017, patient has history of peripheral vascular disease and progressive claudication for which he was evaluated at the [facility] with the report showing right popliteal artery occlusion. There was also reported off for left popliteal vein deep venous thrombosis. He has history of hyperlipidemia, diabetes mellitus which has been managed with medications under control. Hematology is consulted with a diagnosis of deep venous thrombosis? Also with the diagnosis of peripheral arterial disease. Patient underwent a femoropopliteal bypass on 08/04/2017. He has some discomfort in the right lower extremity, none in the left lower extremity. Patient appears mildly sedated after the procedure family at bedside who gives further history. Past Med Surg Social Fam HX - Past Medical History Medical history: DVT, diabetes, hyperlipidemia, hypertension, peripheral artery disease Psychiatric history: no psych history - Past Surgical History Surgical History: non-contributory - Social History Smoking Status: Current every day smoker Smokeless Tobacco Status: No Alcohol use: none Drug use: none - Family History Mother Hx Family Endocrine Disorder: Yes Father Hx Family Endocrine Disorder: Yes Medications and Allergies Atorvastatin [Lipitor] 40 mg PO HS 08/02/17 [History] Cilostazol [Pletal] 100 mg PO BID 08/02/17 [History] Gabapentin [Neurontin] 300 mg PO BID 08/02/17 [History] Glimepiride [Amaryl] 4 mg PO DAILY 08/02/17 [History] Lisinopril-HCTZ 20-12.5 [Prinzide 20-12.5] 1 tab PO DAILY 08/02/17 [History] Metformin HCl [Metformin HCl ER] 2,000 mg PO DAILY 08/02/17 [History] Metoprolol Tartrate 50 mg PO BID 08/02/17 [History] SitaGLIPtin [Januvia] 200 mg PO DAILY 08/02/17 [History] Triamterene/HCTZ 37.5/25mg [Dyazide] 1 tab PO DAILY 08/02/17 [History] HYDROcodone/Acet 5/325 mg [[place] 5-325 mg] 2 tab PO Q6HR PRN 10 Days #30 tablet 08/05/17 [Rx] Rivaroxaban [Xarelto] 15 mg PO BID #41 tablet 08/05/17 [Rx] Rivaroxaban [Xarelto] 20 mg PO 1700 #30 tablet 08/05/17 [Rx] 3 Allergy/AdvReac Type Severity Reaction Status Date / Time Oxycodone [From Percocet] AdvReac Itching Verified 08/02/17 18:39 Review of systems: 14 point RO Sperformed as in HPI Oncology - Exam - Constitutional Vitals: Temp Pulse Resp BP Pulse Ox 98.3 F 59 20 116/74 97 08/05/17 11:24 08/05/17 12:50 08/05/17 12:49 08/05/17 11:24 08/05/17 12:49 General appearance: average body habitus - Head Head exam: Present: atraumatic, normal inspection - ENT ENT exam: Present: mucous membranes moist - Neck Neck exam: Present: full ROM - Respiratory Respiratory exam: Present: CTAB - Cardiovascular Cardiovascular exam: Present: +S1, +S2 - GI/Abdominal GI/Abdominal exam: Present: normal bowel sounds, soft - Neurological Exam Neurological exam: Present: alert, CN II-XII intact, oriented X3 Consult Discharge Plan - Plan Instructions: Deep Venous Thrombosis (DC), Peripheral Vascular Disorders (DC), Angiography (DC) Additional Instructions: May remove bandages and shower on 08/06/17. Wash wounds gently and pat to dry. Apply dry gauze to wounds daily for 7 days. No tub baths or swimming until 08/23/17. Call Dr. Tobin at [phone] with questions or concerns. Referrals: Gus Tobin MD [Partnered Physician] - 08/10/17 2:10 pm [facility],PCP [Primary Care Provider] - 08/13/17 9:30 am Prescriptions: HYDROcodone/Acet 5/325 mg [[place] 5-325 mg] 2 tab PO Q6HR PRN 10 Days #30 tablet PRN Reason: Severe Pain Rivaroxaban [Xarelto] 15 mg PO BID #41 tablet Rivaroxaban [Xarelto] 20 mg PO 1700 #30 tablet
--- NOTE | 2017-08-06 16:52 | Electrocardiograph Report ---
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
--- NOTE | 2017-08-06 19:37 | Electrocardiograph Report ---
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
== END 2017-08-05 16:00 | disposition home or self-care (01) | DRG 253 ==
LOC: EMEROO 15:11 → SUATTDRO 17:59 → 2NNU 17:59
PROVIDERS: ADMIT Pediatrics; ATTEND Student in an Organized Health Care Education/Training Program